=== PATIENT | male | born 1980 | race Caucasian/White ===

== ENCOUNTER 2016-09-18 12:31 | Emergency (ER) | payer OTHER | END 2016-09-18 14:07 | disposition home or self-care (01) | LOC: FER 12:31 | DX: L03.113 Cellulitis of right upper limb (principal) | CPT/HCPCS: 99283 ==

== ENCOUNTER 2021-01-11 17:24 | Emergency (ER) | payer MEDICARE, OTHER ==
[2021-01-11 20:25] LABS: BASOPHIL 0.8 % (0-2); EOSINOPHIL 1.8 % (0-5); HCT 47.2 % (42.0-52.0); HGB 15.7 g/dl (13.2-18.0); LYMPHOCYTE 23.9 % (15-48); MCH 29.2 pg (25.0-31.0); MCHC 33.3 g/dL (32.0-36.0); MCV 87.9 fL (78.0-100.0); MONOCYTE 6.6 % (0-12); MPV 10.1 fL (6.0-9.5); NEUTROPHIL 66.2 % (41-80); NRBC 0; PLT 260 K/uL (150-400); RBC 5.37 M/uL (4.70-6.00); RDW 12.6 % (11.5-14.0); WBC 9.6 K/uL (4.0-10.5)
[2021-01-11 20:41] LABS: POTASSIUM 4.3 mmol/L (3.5-5.1)
[2021-01-11] MEDS ORDERED: AUGMENTIN 875-1 EACH PO (20:56)
== END 2021-01-11 21:10 | disposition home or self-care (01) ==
LOC: FER 17:24
PROVIDERS: Nurse Practitioner Family
DX: S91.352A Open bite, left foot, initial encounter (principal); G80.9 Cerebral palsy, unspecified; W55.01XA Bitten by cat, initial encounter; Y92.009 Unspecified place in unspecified non-institutional (private) residence as the place of occurrence of the external cause
CPT/HCPCS: 36415; 73620; 80048; 85025; 87070; 87205